=== PATIENT | female | born 1995 | race Caucasian/White ===

== ENCOUNTER 2022-06-20 08:38 | Day surgery (SDC) | payer OTHER ==
[~2022-06-20] VITALS: Ht 160 cm; Wt 58.1 kg
[2022-06-20 08:55] VITALS: BP 112/80; PULSE 78; TEMP 97.7
[2022-06-20 10:13] VITALS: BP 130/46; PULSE 70
--- NOTE | 2022-06-20 10:13 | NUR ---
PATIENT RETURNS TO [facility] PER CART AND TRANSFERS FROM CART TO RECLINER WITH ONE PERSON ASSIST. IV FLUIDS INFUSING. TEMP 97.6. ROOM AIR SATS 100%. GIVEN WATER TO DRINK.
[2022-06-20 10:28] VITALS: BP 92/65; PULSE 60
--- NOTE | 2022-06-20 10:28 | NUR ---
DR. POSEY IN THE ROOM AND TALKS WITH THE PATIENT AND ALL QUESTIONS ANSWERED.
--- NOTE | 2022-06-20 10:30 | NUR ---
DISMISSAL INSTRUCTIONS GIVEN AND VOICES UNDERSTANDING OF THESE. SPOUSE HAS BEEN NOTIFIED THAT THE PATIENT IS READY FOR DISCHARGE.
[2022-06-20 10:43] VITALS: BP 100/53; PULSE 69
--- NOTE | 2022-06-20 10:43 | NUR ---
PATIENT DISMISSAL INSTRUCTIONS GIVEN AND VOICES UNDERSTANDING OF THESE. IV DISCONTINUED AND SITE IS FREE OF REDNESS OR SWELLING. PATIENT DRESSES SELF AND AWAITS RIDE HOME.
--- NOTE | 2022-06-20 10:51 | NUR ---
PATIENT DISMISSED TO HOME DRIVEN BY SPOUSE AND TAKEN TO THE VEHILCE PER WHEELCHAIR WITH DISMISSAL INSTRUCTIONS IN HAND.
== END 2022-06-20 10:51 | disposition home or self-care (01) ==
LOC: SDCO 08:38
DX: D12.2 Benign neoplasm of ascending colon (principal); K64.0 First degree hemorrhoids; K62.89 Other specified diseases of anus and rectum
CPT/HCPCS: J2704; J3010; J7030

== ENCOUNTER 2023-02-16 08:22 | Emergency (ER) | payer OTHER ==
[~2023-02-16] VITALS: Ht 162.6 cm; Wt 60.5 kg
[2023-02-16 08:25] VITALS: TEMP 98.1
[2023-02-16] MEDS ORDERED: NORCO 325 MG-51 TAB PO ×3 (09:11→11:02)
[2023-02-16 09:22] VITALS: PULSE 75
== END 2023-02-16 09:24 | disposition home or self-care (01) ==
LOC: COL.ER 08:22
DX: S52.122A Displaced fracture of head of left radius, initial encounter for closed fracture (principal); Z88.5 Allergy status to narcotic agent; W10.9XXA Fall (on) (from) unspecified stairs and steps, initial encounter; W22.01XA Walked into wall, initial encounter

== ENCOUNTER 2024-02-29 08:35 | Emergency (ER) | payer OTHER ==
[~2024-02-29] VITALS: Ht 160 cm; Wt 62.3 kg
[~2024-02-29 08:35] MED LIST: NORCO 325 MG-51 TAB PO
[2024-02-29 08:38] VITALS: TEMP 98.5
[2024-02-29 09:01] LABS: COLLECTION METHOD CLEAN CATCH
[2024-02-29 09:09] LABS: PH 5.5 (5.0-8.5); URINE APPEARANCE CLEAR (CLEAR/HAZY); URINE BLOOD 1+ (NEGATIVE); URINE COLOR YELLOW (YELLOW); URINE GLUCOSE NEGATIVE (NEGATIVE); URINE KETONE NEGATIVE (NEGATIVE); URINE NITRATE NEGATIVE (NEGATIVE); URINE PROTEIN(semi-quant) NEGATIVE (NEGATIVE); URINE UROBILINOGEN 0.2 E.U/dL (0.2-1.0)
[2024-02-29] MEDS ORDERED: Ondansetron 4 MG/2 ML VIAL IV ONE (09:15)
[2024-02-29] MEDS ORDERED: Ketorolac 15 MG/ML VIAL IV ONE (09:15)
[2024-02-29] MEDS ORDERED: Dicyclomine 10 MG CAP PO ONE (09:15)
[2024-02-29 09:26] LABS: BASO # 0.1 K/mm3 (0.0-0.2); EOS # 0.1 K/mm3 (0.0-0.7); EOS % 1.8 % (0.0-4.0); GRAN # 3.6 K/mm3 (1.4-6.5); HEMATOCRIT 37.4 % (37.0-47.0); HEMOGLOBIN 12.7 g/dl (12.5-16.0); LYMPH # 1.8 K/mm3 (1.2-3.4); LYMPH % 30.3 % (20.0-51.0); MEAN CELL VOLUME 85 fl (80.0-100.0); MEAN CORPUSCULAR HEMOGLOBIN 29 pg (27-31); MEAN CORPUSCULAR HGB CONC 34 g/dl (33.0-37.0); MEAN PLATELET VOLUME 9.7 fl (7.4-10.4); MONO # 0.5 K/mm3 (0.1-0.6); MONO % 7.6 % (1.7-9.3); PLATELET COUNT 292 K/mm3 (130-400); RED BLOOD COUNT 4.39 M/mm3 (4.10-5.30); REDCELL DISTRIBUTION WIDTH-CV 12.5 % (11.5-14.5)
[2024-02-29] MEDS ORDERED: Iohexol 300 - 100 ML VIAL IV ONE (09:30)
[2024-02-29] MEDS ORDERED: NS 100 ML IV SCH (09:31)
[2024-02-29 09:43] LABS: ALBUMIN 3.8 g/dL (3.5-5.0); BILIRUBIN,TOTAL 0.4 mg/dL (0.2-1.2); CALCIUM 9.8 mg/dL (8.4-10.2); CREATININE, serum 0.74 mg/dL (0.57-1.11); POTASSIUM 3.8 mEq/L (3.5-4.5); TOTAL PROTEIN 7.2 g/dl (6.2-8.1)
[2024-02-29] MEDS ORDERED: INDOCIN 25MG CA25 MG PO (10:33)
[2024-02-29 10:46] VITALS: BP 107/65; PULSE 61
== END 2024-02-29 10:46 | disposition home or self-care (01) ==
LOC: COL.ER 08:35
PROVIDERS: Emergency Medicine
DX: R10.32 Left lower quadrant pain (principal); R31.29 Other microscopic hematuria
CPT/HCPCS: J1885; J2405; Q9967

== ENCOUNTER 2024-04-16 10:13 | Emergency (ER) | payer OTHER ==
[~2024-04-16] VITALS: Ht 162.6 cm; Wt 61.8 kg
[~2024-04-16 10:13] MED LIST changes: +INDOCIN 25MG CA25 MG PO
[2024-04-16 10:19] VITALS: TEMP 98.5
[2024-04-16] MEDS ORDERED: Ondansetron 4 MG/2 ML VIAL IV PRN (13:00)
[2024-04-16] MEDS ORDERED: fentaNYL 50 MCG/ML 2 ML VIAL IV PRN (13:00)
[2024-04-16] MEDS ORDERED: NS 1,000 ML IV ONE (13:00)
[2024-04-16 13:49] LABS: BASO # 0.1 K/mm3 (0.0-0.2); BASO % 0.6 % (0.0-2.0); EOS # 1.5 K/mm3 (0.0-0.7); EOS % 13.1 % (0.0-4.0); GRAN # 7.1 K/mm3 (1.4-6.5); GRAN % 63.8 % (42.2-75.2); HEMATOCRIT 41.1 % (37.0-47.0); HEMOGLOBIN 13.6 g/dl (12.5-16.0); LYMPH # 1.9 K/mm3 (1.2-3.4); MEAN CELL VOLUME 87 fl (80.0-100.0); MEAN CORPUSCULAR HEMOGLOBIN 29 pg (27-31); MEAN CORPUSCULAR HGB CONC 33 g/dl (33.0-37.0); MEAN PLATELET VOLUME 9.2 fl (7.4-10.4); MONO # 0.6 K/mm3 (0.1-0.6); PLATELET COUNT 358 K/mm3 (130-400); RED BLOOD COUNT 4.75 M/mm3 (4.10-5.30); REDCELL DISTRIBUTION WIDTH-CV 13.1 % (11.5-14.5)
[2024-04-16 14:05] LABS: ALBUMIN 4.1 g/dL (3.5-5.0); BILIRUBIN,TOTAL 0.3 mg/dL (0.2-1.2); CALCIUM 10.1 mg/dL (8.4-10.2); CREATININE, serum 0.67 mg/dL (0.57-1.11); POTASSIUM 3.9 mEq/L (3.5-4.5); TOTAL PROTEIN 7.5 g/dl (6.2-8.1)
[2024-04-16] MEDS ORDERED: NORCO 325 MG-51 TAB PO (15:18)
[2024-04-16 15:40] VITALS: BP 113/70; PULSE 65
== END 2024-04-16 15:53 | disposition home or self-care (01) ==
LOC: COL.ER 10:13
PROVIDERS: Personal Emergency Response Attendant
DX: R10.11 Right upper quadrant pain (principal); R11.0 Nausea
CPT/HCPCS: J2405; J3010; J7030

== ENCOUNTER 2024-05-06 11:31 | Emergency (ER) | payer OTHER ==
[~2024-05-06] VITALS: Ht 160 cm; Wt 61.8 kg
[2024-05-06 11:36] VITALS: TEMP 97.8
[2024-05-06 12:24] LABS: COLLECTION METHOD CLEAN CATCH
[2024-05-06 12:32] LABS: PH 7.5 (5.0-8.5); URINE APPEARANCE CLEAR (CLEAR/HAZY); URINE BLOOD NEGATIVE (NEGATIVE); URINE COLOR YELLOW (YELLOW); URINE GLUCOSE NEGATIVE (NEGATIVE); URINE KETONE NEGATIVE (NEGATIVE); URINE NITRATE NEGATIVE (NEGATIVE); URINE PROTEIN(semi-quant) NEGATIVE (NEGATIVE); URINE UROBILINOGEN 0.2 E.U/dL (0.2-1.0)
[2024-05-06] MEDS ORDERED: NS 1,000 ML IV ONE (12:45)
[2024-05-06] MEDS ORDERED: Ondansetron 4 MG/2 ML VIAL IV ONE (12:45)
[2024-05-06] MEDS ORDERED: Ketorolac 30 MG/ML VIAL IV ONE (12:45)
[2024-05-06 13:48] LABS: HEMATOCRIT 41.1 % (37.0-47.0); HEMOGLOBIN 13.4 g/dl (12.5-16.0); MEAN CELL VOLUME 87 fl (80.0-100.0); MEAN CORPUSCULAR HEMOGLOBIN 28 pg (27-31); MEAN CORPUSCULAR HGB CONC 33 g/dl (33.0-37.0); MEAN PLATELET VOLUME 9.7 fl (7.4-10.4); PLATELET COUNT 388 K/mm3 (130-400); RED BLOOD COUNT 4.74 M/mm3 (4.10-5.30)
[2024-05-06 13:58] LABS: ALBUMIN 4.3 g/dL (3.5-5.0); BILIRUBIN,TOTAL 0.4 mg/dL (0.2-1.2); C-REACTIVE PROTEIN 0.24 mg/dL (0.00-0.50); CREATININE, serum 0.74 mg/dL (0.57-1.11); POTASSIUM 3.8 mEq/L (3.5-4.5); TOTAL PROTEIN 7.7 g/dl (6.2-8.1)
[2024-05-06 14:28] LABS: BAND 1 % (0-10); EOSINOPHIL 20 % (0-4); LYMPHOCYTE 30 % (20.0-51.0); NEUTROPHILS 47 % (42.0-75.2)
[2024-05-06 14:29] LABS: ANISOCYTOSIS 1+; PLATELET ESTIMATE INCREASED (NORMAL)
[2024-05-06] MEDS ORDERED: fentaNYL 50 MCG/ML 2 ML VIAL IV ONE (14:45)
[2024-05-06] MEDS ORDERED: Iohexol 300 - 100 ML VIAL IV ONE (15:01)
[2024-05-06] MEDS ORDERED: NS 100 ML IV SCH (15:02)
[2024-05-06 16:50] VITALS: BP 11/73; PULSE 74
== END 2024-05-06 16:50 | disposition home or self-care (01) ==
LOC: COL.ER 11:31
PROVIDERS: Emergency Medicine
DX: K29.80 Duodenitis without bleeding (principal); A08.4 Viral intestinal infection, unspecified
CPT/HCPCS: J1885; J2405; J3010; J7030; Q9967

== ENCOUNTER 2024-06-10 08:30 | Emergency (ER) | payer OTHER ==
[~2024-06-10] VITALS: Ht 160 cm; Wt 60.9 kg
[2024-06-10 08:33] VITALS: BP 139/78; TEMP 97.7
[2024-06-10 08:52] LABS: COLLECTION METHOD CLEAN CATCH
[2024-06-10 08:56] LABS: PH 6.5 (5.0-8.5); URINE APPEARANCE CLEAR (CLEAR/HAZY); URINE BLOOD NEGATIVE (NEGATIVE); URINE COLOR YELLOW (YELLOW); URINE GLUCOSE NEGATIVE (NEGATIVE); URINE KETONE NEGATIVE (NEGATIVE); URINE NITRATE NEGATIVE (NEGATIVE); URINE PROTEIN(semi-quant) NEGATIVE (NEGATIVE); URINE UROBILINOGEN 0.2 E.U/dL (0.2-1.0)
[2024-06-10] MEDS ORDERED: BACTRIM DS 8001 TAB PO (09:58)
[2024-06-10 10:18] VITALS: PULSE 92
== END 2024-06-10 10:18 | disposition home or self-care (01) ==
LOC: COL.ER 08:30
PROVIDERS: Family Medicine
DX: N30.00 Acute cystitis without hematuria (principal)

== ENCOUNTER 2024-06-26 08:35 | Emergency (ER) | payer OTHER ==
[~2024-06-26] VITALS: Ht 160 cm; Wt 61.8 kg
[~2024-06-26 08:35] MED LIST changes: +BACTRIM DS 8001 TAB PO
[2024-06-26 08:41] VITALS: BP 107/74; TEMP 98
[2024-06-26] MEDS ORDERED: Ketorolac 30 MG/ML VIAL IV ONE (09:00)
[2024-06-26] MEDS ORDERED: diphenhydrAMINE 50 MG/ML 1 ML VIAL IV ONE (09:00)
[2024-06-26 10:23] VITALS: PULSE 87
== END 2024-06-26 10:24 | disposition home or self-care (01) ==
LOC: COL.ER 08:35
DX: G43.909 Migraine, unspecified, not intractable, without status migrainosus (principal)
CPT/HCPCS: J0780; J1200; J1885